=== PATIENT | female | born 1995 | race Asian ===

== ENCOUNTER 2018-06-18 19:29 | Emergency (ER) | payer MEDICAID ==
--- NOTE | 2018-06-18 20:03 | EDPHY ---
H & P Stated Complaint: abd pain, painful urination Time Seen by Provider: 06/18/18 20:00 HPI/ROS: HPI: This is a 22-year-old female who presents with Chief Complaint: abd pain, painful urination Location: Suprapubic Quality: Pain, dysuria Duration: Today around 2:00 p.m. Signs and Symptoms: no fever, no nausea, no vomiting, no hematemesis, no blood in stool, no abdominal bloating, no diarrhea, no back pain, no urinary symptoms , no vaginal bleeding/discharge, no indigestion, no chest pain, no shortness of breath Timing: Acute, intermittent episodes Severity: Moderate Context: Patient is a student at [employer], presents with sudden onset of suprapubic pain that is nonradiating in nature accompanied by" it hurts to pee." Since around 2:00 p.m. Approximately 6 hr. Patient denies any fever, nausea, vomiting, flank pain, diarrhea. Patient has an IUD. Does not get her menses regularly. Has no history of ovarian cyst. Last urination prior to arrival. Modifying Factors: None Comment: ROS: A comprehensive 10 system review of systems is otherwise negative aside from elements mentioned in the history of present illness. MEDICAL/SURGICAL/SOCIAL HISTORY: Medical history: Generally healthy. Does not take any regular medications. Surgical history: Denies Social history: Originally from [place], [place]. Family history noncontributory. CONSTITUTIONAL: Extremely well-appearing young adult female, awake and alert, no obvious distress HEENT: Atraumatic and normocephalic, PERRL, EOMI. Nares patent; no rhinorrhea; no nasal mucosal edema. Tympanic membranes clear. Oropharynx clear, no exudate and moist pink mucosa. Airway patent. No lymphadenopathy. No meningismus. Cardiovascular: Normal S1/S2, regular rate, regular rhythm, without murmur rub or gallop. PULMONARY/CHEST: Symmetrical and nontender. Clear to auscultation bilaterally. Good air movement. No accessory muscle usage. ABDOMEN: Soft, nondistended, mild suprapubic tenderness, no rebound, no guarding, no peritoneal signs, no masses or organomegaly. No CVAT. EXTREMITIES: 2/2 pulses, strength 5/5, no deformities, no clubbing, no cyanosis or edema. NEUROLOGICAL: no focal neuro deficits. GCS 15. SKIN: Warm and dry, no erythema. no rash. Good capillary refill. Source: Patient Exam Limitations: No limitations - Personal History LMP (Females 10-55): IUD In Place Current Tetanus Diphtheria and Acellular Pertussis (TDAP): Yes - Medical/Surgical History Hx Asthma: No Hx Chronic Respiratory Disease: No Hx Diabetes: No Hx Cardiac Disease: No Hx Renal Disease: No Hx Cirrhosis: No Hx Alcoholism: No Hx HIV/AIDS: No Hx Splenectomy or Spleen Trauma: No - Social History Smoking Status: Never smoked Constitutional: Initial Vital Signs Temperature (C) 36.9 C 06/18/18 19:31 Heart Rate 97 06/18/18 19:31 Respiratory Rate 20 06/18/18 19:31 Blood Pressure 120/80 06/18/18 19:31 O2 Sat (%) 97 06/18/18 19:31 O2 Delivery Mode Room Air Allergies/Adverse Reactions: No Known Allergies Allergy (Unverified 06/18/18 19:31) Medical Decision Making ED Course/Re-evaluation: Vital signs reviewed and stable upon arrival. No systemic signs. Urinalysis and urine ordered. 2020: Urinalysis shows 1+ blood, 1+ epithelial cells but no olinda signs of infection. Suspect contamination. 2123: US @ bedside 2220: Called by radiologist who advised that right lower quadrant ultrasound shows no signs of appendicitis. Pelvic ultrasound shows ruptured ovarian right cyst. Good blood flow to both ovaries. No signs of ovarian torsion. IUD is in place. This patient was seen under the supervision of my secondary supervising physician. I evaluated care for this patient independently. Discussed this patient with Dr. Dior. Differential Diagnosis: Differential diagnosis includes but is not limited to bacterial vaginosis, cystitis, urinary tract infection, pyelonephritis, kidney stone, gonorrhea, chlamydia. - Data Points Medications Given: Discontinued Medications Ibuprofen (Motrin) 800 mg PO EDNOW ONE Stop: 06/18/18 22:23 Last Admin: 06/18/18 22:29 Dose: 800 mg Phenazopyridine HCl (Pyridium) 200 mg PO EDNOW ONE Stop: 06/18/18 22:23 Last Admin: 06/18/18 22:29 Dose: 200 mg Point of Care Test Results: Urine Collection Date 06/18/18 Collection Time 20:10 HCG Results Negative Departure - Departure Disposition: Home, Routine, Self-Care Clinical Impression: Ruptured ovarian cyst Condition: Good Instructions: Ruptured Ovarian Cyst (ED) Additional Instructions: Take Tylenol 650 mg every 4 hours and/or Ibuprofen 600 mg every 8 hours with food as needed for pain. Apply moist heat for 30 minutes at a time; 2-3 times per day for the next 1-2 days. Follow up with OBGYN in the next 1-2 weeks. You will have to have a repeat ultrasound in 6 months. Referrals: Ammy Quinn MD [Medical Doctor] - As per Instructions Stand Alone Forms: School Excuse
[2018-06-18 22:02] VITALS: BP 121/83
[2018-06-18] MEDS ORDERED: IBUPROFEN 800 MG TAB PO ONE (22:22)
[2018-06-18] MEDS ORDERED: PHENAZOPYRIDINE HCL 200 MG TAB PO ONE (22:22)
== END 2018-06-18 22:35 | disposition home or self-care (01) ==
DX: N83.201 Unspecified ovarian cyst, right side (principal)